=== PATIENT | male | born 1965 | race Caucasian/White ===

== ENCOUNTER 2020-06-23 16:38 | Outpatient (CLI) | payer OTHER, SELFPAY | END 2020-06-23 16:39 | disposition home or self-care (01) | LOC: ANHCOVIDVC 16:38 | PROVIDERS: PCP Family Medicine | DX: Z23 Encounter for immunization (principal) | CPT/HCPCS: 0001A; 91300 ==

== ENCOUNTER 2020-07-14 15:51 | Outpatient (CLI) | payer OTHER, SELFPAY | END 2020-07-14 15:52 | disposition home or self-care (01) | LOC: ANHCOVIDVC 15:51 | PROVIDERS: PCP Family Medicine | DX: Z23 Encounter for immunization (principal) | CPT/HCPCS: 0002A; 91300 ==

== ENCOUNTER 2023-08-04 05:55 | Day surgery (SDC) | payer OTHER, SELFPAY ==
[2023-06-24 11:20] VITALS: BMI 31.4
--- NOTE | 2023-07-29 12:07 | P.HP_ITS ---
History of Present Illness History of Present Illness Consent: Risks, benefits, and alternatives have been discussed and questions answered. Patient agrees to proceed with procedure. Chief complaint: Neoplasm Screening Narrative: Enio Mtz is a 58 year old male Referred for colon cancer screening. ON LICENSE OF [facility] Past Medical History Medical History Hyperlipidemia Hypertension Obesity (BMI 30.0-34.9) Family History Family History Father Acute myocardial infarction Social History Social History Smoking status: Never smoker Alcohol intake: current Drinks per week: 1 Substance use: never Substance use type: does not use Living arrangements: with family Gender identity (if verbalized by the patient): Male Meds Home Medications and Allergies Home Medications Medication Instructions Recorded Confirmed Type triamcinolone acetonide 0.1 % 1 applic topical BID #80 grams 07/19/19 08/04/23 Rx topical cream aspirin 81 mg tablet,delayed 81 mg PO DAILY 06/19/20 08/04/23 History release (Adult Low Dose Aspirin) sildenafil (pulm.hypertension) 20 20 mg PO DAILY PRN sexual activity 11/21/22 08/04/23 Rx mg tablet #30 tabs atorvastatin 10 mg tablet 10 mg PO DAILY #90 tabs 12/25/22 08/04/23 Rx hydrochlorothiazide 25 mg tablet See Rx Instructions .Route 12/25/22 08/04/23 Rx .COMPLEX #90 tabs multivitamin 1 tablet PO DAILY 07/21/23 08/04/23 History Allergies Allergy/AdvReac Type Severity Reaction Status Date / Time Penicillins Allergy Unknown Rash Verified 08/04/23 06:42 Assessment and Plan Assessment and plan (1) Colon cancer screening: Code(s): Z12.11 - Encounter for screening for malignant neoplasm of colon Status: Acute Assessment and Plan: Colonoscopy with possible biopsy or polypectomy or cautery or injection of substances.
[2023-08-04 06:45] VITALS: BP 130/99; PULSE 83; RESP 14; TEMP 36.4; O2SAT 96
--- NOTE | 2023-08-04 07:05 | WPDANESEPPF ---
Anes - Initial Pre Proc Eval Procedure: Operation Date: 08/04/23 08:00 Proposed Procedures p Screening Colonoscopy - Stanley Vivar MD Date/Time: 08/04/23 07:05 Surgeon: Stanley Vivar MD Pre Op Diagnosis: Neoplasm Screening Patient Data Age: 58 Gender: M Height: 1.75 m Weight: 94.9 kg Last Vital Signs Temp 36.4 C L 08/04/23 06:45 Pulse 83 08/04/23 06:45 Resp 14 08/04/23 06:45 BP 130/99 H 08/04/23 06:45 Pulse Ox 96 08/04/23 06:45 O2 Del Method Room Air 08/04/23 06:45 Allergies Allergy/AdvReac Type Severity Reaction Status Date / Time Penicillins Allergy Unknown Rash Verified 08/04/23 06:42 Home Medications Medication Instructions Recorded Confirmed Type triamcinolone acetonide 0.1 % 1 applic topical BID #80 grams 07/19/19 08/04/23 Rx topical cream aspirin 81 mg tablet,delayed 81 mg PO DAILY 06/19/20 08/04/23 History release (Adult Low Dose Aspirin) sildenafil (pulm.hypertension) 20 20 mg PO DAILY PRN sexual activity 11/21/22 08/04/23 Rx mg tablet #30 tabs atorvastatin 10 mg tablet 10 mg PO DAILY #90 tabs 12/25/22 08/04/23 Rx hydrochlorothiazide 25 mg tablet See Rx Instructions .Route 12/25/22 08/04/23 Rx .COMPLEX #90 tabs multivitamin 1 tablet PO DAILY 07/21/23 08/04/23 History Patient hx anesthesia problems: none Family hx anesthesia problems: none Results Review: All pre-operative results and documents have been reviewed as part of the pre-operative evaluation. [facility] Past Medical History Medical History Hyperlipidemia Hypertension Obesity (BMI 30.0-34.9) Family History Family History Father Acute myocardial infarction Social History Social History Smoking status: Never smoker Alcohol intake: current Drinks per week: 1 Substance use: never Substance use type: does not use Living arrangements: with family Gender identity (if verbalized by the patient): Male Anes - Eval Final PreProcedure Day of Procedure 08/04/23 07:05 Patient weight: obese Heart: regular rate and rhythm Lungs: clear to auscultation Airway: Mallampati scale class II Neurological: alert and oriented Last oral intake: >/= 8 hours ASA classification: III Emergent: no Anesthetic plan: proceed Anesthesia type and monitoring: general GIVS and standard monitoring Results Review: All pre-operative results and documents have been reviewed as part of the pre-operative evaluation. Informed Consent: The patient's anesthetic plan and its attendant risks and benefits were discussed with the patient/family/POA. Questions were solicited and answers provided to the satisfaction of the patient/family/POA.
[2023-08-04] MEDS: LACTATED RINGERS 1,000 ML 150 ML IV CONT (07:18)
[2023-08-04] MEDS: SIMETHICONE ORAL SUSPENSION 20 MG/0.3 ML 30 ML BOTTLE 0.6 ML IRRIGATION (08:03)
[2023-08-04 08:10] VITALS: BP 111/92; PULSE 81; RESP 16; O2SAT 95
[2023-08-04 08:20] VITALS: BP 112/80; PULSE 72; RESP 18; O2SAT 95
[2023-08-04 08:30] VITALS: BP 133/85; PULSE 74; RESP 18; O2SAT 96
--- NOTE | 2023-08-04 09:32 | WPDANESPN ---
Anes - Prog Note Post-Op Date/Time: 08/04/23 09:32 Cardiovascular status: normal Respiratory status: normal Airway patency: baseline Mental status: baseline Post-Op hydration status: normal Vital Signs: Last Vital Signs Temp 36.4 C L 08/04/23 06:45 Pulse 74 08/04/23 08:30 Resp 18 08/04/23 08:30 BP 133/85 08/04/23 08:30 Pulse Ox 96 08/04/23 08:30 O2 Del Method Room Air 08/04/23 08:30 Pain Score (VAS): 0 I/O: Intake & Output 08/03/23 08/04/23 08/04/23 23:59 07:59 15:59 Intake Total 650 Balance 650 Post-procedural complaints: none Patient Feedback: Patient satisfied with anesthetic care. Other Findings: Patient vital signs back to baseline. Patient denies nausea and vomiting. Patient's pain under control. Patient OK for discharge.
== END 2023-08-04 08:50 | disposition home or self-care (01) ==
PROVIDERS: PCP Family Medicine; Visit Provider Internal Medicine Gastroenterology
PROC: 0DJD8ZZ Inspection of Lower Intestinal Tract, Via Natural or Artificial Opening Endoscopic (ICD-10-PCS; CPT 45378; principal; 2023-08-04 08:00)
DX: Z12.11 Encounter for screening for malignant neoplasm of colon (principal); K57.30 Diverticulosis of large intestine without perforation or abscess without bleeding; K64.8 Other hemorrhoids
CPT/HCPCS: 45378

== ENCOUNTER 2024-11-02 10:34 | Outpatient (CLI) | payer OTHER, SELFPAY ==
--- NOTE | ~2024-11-02 | XR_ITS ---
EXAM/ PROCEDURE: XR knee RT 3V - 11/02/2024 10:37 CDT HISTORY: 59 years old Male with Medial Rt knee pain, twisted yest playing golf COMPARISON: None available TECHNIQUE: Three view(s) FINDINGS/ IMPRESSION: There are no fractures or dislocations.Joint space narrowing, subchondral sclerosis, subchondral cyst formation and osteophyte formation, compatible with mild osteoarthritis. Joint effusion seen. Reviewed, dictated and finalized at location A.
== END 2024-11-02 10:35 | disposition home or self-care (01) ==
LOC: GOSHIMG 10:34
PROVIDERS: PCP Student in an Organized Health Care Education/Training Program; Visit Provider Student in an Organized Health Care Education/Training Program
DX: M25.461 Effusion, right knee (principal); M25.561 Pain in right knee
CPT/HCPCS: 73562

== ENCOUNTER 2024-11-03 12:42 | Outpatient (CLI) | payer OTHER, SELFPAY ==
--- NOTE | ~2024-11-03 | MR_ITS ---
EXAMINATION: MR knee RT wo con DATE: 11/03/2024 13:11 INDICATION: Right knee contusion TECHNIQUE: Magnetic resonance imaging (MRI) of the right knee was performed without intravenous contr ast. Sequences included coronal PD-weighted FSE, coronal PD-weighted FS FSE, sagittal T2-weighted FS E, sagittal PD-weighted FS FSE and axial PD weighted fat saturated FSE. COMPARISON: None. FINDINGS: Medial compartment: Medial meniscus is normal. There is a multilobulated ganglion cyst extending along the posterior horn of the medial meniscus without evident associated meniscal tear. Chondral ulceration and deep fissur ing along the lateral margin of the junction of the anterior to central weightbearing medial femoral condyle. There is no underlying subarticular edema-like signal change. Remaining cartilage in the med ial compartment is normal. Lateral compartment: Lateral meniscus is normal. Articular cartilage is normal. Patellofemoral compartment: Chondral fissure involving slightly less than 50% the cartilage thickness at the central aspect of th e lateral patellar facet. Additional small chondral fissure involving up to 50% the cartilage thickne ss at the cephalad aspect of the lateral patellar facet. Trochlear cartilage is normal. Ligaments and tendons: Anterior and posterior cruciate ligaments are normal. The fibular collateral ligament complex is norm al. There is edema along the medial aspect of the knee predominantly over the normal-appearing patell ofemoral retinaculum but also extending along the superficial aspect of the proximal aspect of the ot herwise normal-appearing medial collateral ligament most likely related to posttraumatic soft tissue contusion although could not absolutely exclude a low-grade ligament sprain of the medial collateral ligament. The extensor mechanism is normal. The visualized medial and lateral hamstring tendons as we ll as the iliotibial band are normal. Fluid: Physiologic amount of fluid in the joint space. No loose osteochondral bodies identified. Osseous/other: No fracture or pathologic marrow replacing process. IMPRESSION: 1. Edema along the medial aspect of the knee overlying the normal-appearing medial patellofemoral ret inaculum and proximal medial collateral ligament. Would favor contusion related to reported injury ov er low-grade sprains of the retinaculum or medial collateral ligament. 2. Mild medial and patellofemoral osteoarthritis with high-grade chondromalacia along the lateral mar gin of the weightbearing medial femoral condyle and moderate grade chondral malacia the lateral calzada lar facet. Reviewed, dictated and finalized at location A. IMPRESSION: 1. Edema along the medial aspect of the knee overlying the normal-appearing med ial patellofemoral retinaculum and proximal medial collateral ligament. Would f avor contusion related to reported injury over low-grade sprains of the retinac ulum or medial collateral ligament. 2. Mild medial and patellofemoral osteoarthritis with high-grade chondromalacia along the lateral margin of the weightbearing medial femoral condyle and moder ate grade chondral malacia the lateral patellar facet.
== END 2024-11-03 12:43 | disposition home or self-care (01) ==
LOC: GOSHIMG 12:43
PROVIDERS: PCP Student in an Organized Health Care Education/Training Program; Visit Provider Student in an Organized Health Care Education/Training Program
DX: S80.01XA Contusion of right knee, initial encounter (principal); X58.XXXA Exposure to other specified factors, initial encounter; M25.561 Pain in right knee; M17.11 Unilateral primary osteoarthritis, right knee; M94.261 Chondromalacia, right knee
CPT/HCPCS: 73721